=== PATIENT | male | born 1975 | race Caucasian/White ===

== ENCOUNTER 2018-07-08 20:59 | Emergency (ER) | payer OTHER ==
[~2018-07-08] VITALS: Ht 172.7 cm; Wt 83.9 kg
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
[2018-07-08] MEDS ORDERED: KETOROLAC 60 MG/2 ML VIAL. IM ONE ×2 (21:30→21:33)
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
[2018-07-08] MEDS ORDERED: HYDR-79 PO (22:02)
== END 2018-07-08 22:27 | disposition home or self-care (01) ==
LOC: ER 20:59
DX: S82.401A Unspecified fracture of shaft of right fibula, initial encounter for closed fracture (principal); X50.1XXA Overexertion from prolonged static or awkward postures, initial encounter; Y93.55 Activity, bike riding; Y92.89 Other specified places as the place of occurrence of the external cause; Y99.8 Other external cause status
CPT/HCPCS: 29515; 73564; 96372; 99284; J1885